=== PATIENT | male | born 1980 | race American Indian/Alaskan Native ===

== ENCOUNTER 2016-11-11 14:08 | Outpatient (CLI) | payer OTHER ==
--- NOTE | 2016-11-11 15:35 | Mammography Report ---
Bilateral diagnostic mammogram with sonogram: History: Lump in left breast. Findings: There is a post tissue bilaterally. No distinct mass or microcalcification. Sonographic examination of November there is no cystic or solid mass. Impression: Benign findings. If clinically indicated annual followup recommended. BI-RADS CATEGORY: 2 = Benign ACR BI-RADS MAMMOGRAPHIC CODES: 0 = Needs additional imaging evaluation; 1 = Negative; 2 = Benign; 3 = Probably benign; 4 = Suspicious; 5 = Malignant; 6 = Known biopsy-proven malignancy COMMENT: 1. Dense breast tissue, i.e., adenosis, fibrocystic changes, etc., may obscure an underlying neoplasm. 2. Approximately 10% of cancers are not detected with mammography. 3. A negative mammography report should not delay biopsy if a clinically suspicious mass is present. COMMENT: Patient follow-up letters are generated in [employer].
== END 2016-11-11 14:09 | disposition home or self-care (01) ==
LOC: MAMMO 14:08
DX: N63.0 Unspecified lump in unspecified breast (principal)
CPT/HCPCS: 76642; G0204; 77066